=== PATIENT | female | born 1975 | race Two or more races ===

== ENCOUNTER → 2024-04-15 | Outpatient (CLI) | payer BC, SELFPAY ==
[2024-04-15 12:11] LABS: Basophils % (Auto) 1 % (0-2.5); Eosinophils # (Auto) 0.1 Thou/mm3 (0.0-0.5); Eosinophils % (Auto) 1 % (0-10); Hematocrit 40.8 % (36.0-46.0); Hemoglobin 13.6 g/dL (12.0-16.0); Immature Granulocytes % (Auto) 0 % (0-0); Immature Granulocytes Auto 0.02 Thou/mm3 (0.00-0.00); Lymphocytes # (Auto) 1.4 Thou/mm3 (1.0-4.8); Lymphocytes % (Auto) 27 % (10-50); Mean Corpuscular HGB Conc 33.3 g/dl (31.0-37.0); Mean Corpuscular Hemoglobin 29.7 pg (25.0-35.0); Mean Corpuscular Volume 89 fL (80-100); Monocytes # (Auto) 0.4 Thou/mm3 (0.0-0.8); Monocytes % (Auto) 7 % (0-12); Neutrophils # (Auto) 3.3 Thou/mm3 (1.8-7.7); Neutrophils % (Auto) 64 % (37-80); Nucleated Red Blood Cell % 0 /100 WBC (0); Platelet Count 260 Thou/mm3 (140-440); RDW Standard Deviation 39.7 fL (36.4-46.3); Red Blood Count 4.58 Miln/mm3 (4.00-5.20); White Blood Count 5.1 Thou/mm3 (3.6-11.0)
[2024-04-15 12:22] LABS: Alanine Aminotransferase 59 U/L (10-49); Albumin, Serum 4.5 gm/dL (3.5-5.0); Albumin/Globulin Ratio 1.5 (1.2-2.2); Alkaline Phosphatase 91 U/L (46-116); Anion Gap 7 (7-16); Aspartate Amino Transferase 18 U/L (0-34); BUN/Creatinine Ratio 17 Ratio (12-20); Bilirubin,Total 0.6 mg/dL (0.3-1.2); Blood Urea Nitrogen 15 mg/dL (9-23); Calcium 9.6 mg/dL (8.3-10.6); Calcium (Corrected) 9.6 mg/dL (8.5-10.1); Carbon Dioxide 27.3 mMol/L (20.0-31.0); Chloride 103 mMol/L (98-107); Creatinine (Component) 0.9 mg/dL (0.6-1.3); Glucose 91 mg/dL (74-106); Osmolality,Calculated 274 (275-295); Parathyroid Hormone Intact 63.7 pg/ml (18.5-88.0); Phosphorous 3.2 mg/dL (2.4-5.1); Potassium 4.2 mMol/L (3.4-5.1); Sodium 137 mMol/L (136-145); Total Protein 7.5 gm/dL (5.7-8.2); eGFR > 60 See Note
== END | disposition home or self-care (01) ==
LOC: COPL 11:10
PROVIDERS: PCP Registered Nurse; Referring Provider Internal Medicine Endocrinology, Diabetes & Metabolism; Visit Provider Internal Medicine Endocrinology, Diabetes & Metabolism
DX: E21.3 Hyperparathyroidism, unspecified (principal); E83.52 Hypercalcemia; E55.9 Vitamin D deficiency, unspecified
CPT/HCPCS: 36415; 80053; 82306; 83970; 84100; 85025

== ENCOUNTER → 2024-11-04 | Outpatient (CLI) | payer BC, SELFPAY ==
[2024-11-05 15:19] LABS: COVID-19 Confirmatory PCR Negative (Neg)
== END | disposition home or self-care (01) ==
LOC: COPL 16:02
PROVIDERS: PCP Registered Nurse; Referring Provider Student in an Organized Health Care Education/Training Program; Visit Provider Student in an Organized Health Care Education/Training Program
DX: U07.1 COVID-19 (principal)
CPT/HCPCS: 87635

== ENCOUNTER → 2025-03-04 | Outpatient (CLI) | payer BC, SELFPAY ==
--- NOTE | 2025-03-04 07:15 | XR_ITS ---
EXAMINATION: Abdomen sonogram complete TECHNIQUE: Grayscale sonographic images of abdomen Artery 15, 5, 0739 hours INDICATIONS: Abdominal pain this week. FINDINGS: Normal gallbladder. Normal common bile duct Pancreatic head 2.4 cm Aorta not enlarged. Liver 13.7 cm fatty infiltration no focal liver lesions Normal hepatopetal portal venous flow Patent IVC Right kidney 10.7 cm renal cortex 1.6 cm Left kidney 11.7 cm renal cortex 2.0 cm Mild renal scar formation Spleen 9.7 cm IMPRESSION: Normal gallbladder Fatty infiltration throughout the liver.
== END | disposition home or self-care (01) ==
PROVIDERS: PCP Registered Nurse; Referring Provider Registered Nurse; Visit Provider Registered Nurse
DX: K76.0 Fatty (change of) liver, not elsewhere classified (principal)
CPT/HCPCS: 76700

== ENCOUNTER 2025-03-13 18:22 | Emergency (ER) | payer BC, SELFPAY ==
[2025-03-13 18:24] VITALS: BMI 34.3
[2025-03-13 19:33] VITALS: BP 133/84; PULSE 77; RESP 17; TEMP 36.9; O2SAT 98
--- NOTE | 2025-03-13 19:48 | EDRME_ITS ---
Rapid Medical Screening Exam [facility] Arrival date/time: 03/13/25 18:22 49F with history of Sjogren's syndrome presents to ED with several days of L- sided RICHARD, as well as some L eye pain/redness. Patient denies discharge and vision changes. Chief Complaint: Eye Problems Vital signs: Vital Signs Temperature 98.4 F 03/13/25 19:33 Pulse Rate 77 03/13/25 19:33 Respiratory Rate 17 03/13/25 19:33 Blood Pressure 133/84 H 03/13/25 19:33 Pulse Oximetry (%) 98 03/13/25 19:33 Exam: L red eye. Normal pupil response and EOM (painless). No orbital tenderness. Speech normal. Clinical Impression: Conjunctivitis vs migraine vs temporal arteritis vs orbital cellulitis vs acute- angle glaucoma vs shingles
--- NOTE | 2025-03-13 20:10 | XR_ITS ---
Examination: CT brain head without contrast. 2-D sagittal coronal reconstructions Date and time of exam: March 13, 2025, 2024 hours INDICATION: Onset sharp pain behind the left eye beginning 1 week ago CTDI: vol (mGy): 48.5 DLP: (mGycm): 1044 Technique: Multiple CT axial sections of the brain have been obtained, 5 mm slice thickness. Contrast has not been administered. 2-D sagittal, coronal reconstructions have been obtained Low dose protocols were performed. One or more of the following dose reduction techniques were used; automated exposure control, adjustment of the mA and/or KV according to patient size, use of iterative reconstruction technique. Findings: No significant ventricular enlargement. Intra-axial or extra-axial hemorrhage density is not seen. No mass effect or midline shift Basal cisterns are not remarkable. Fourth ventricle is midline. Cranial vault intact. Impression: Negative for acute hemorrhage, mass effect or midline shift If symptoms persist, consider brain MRI follow-up pre and postcontrast
[2025-03-13 20:24] LABS: Basophils # (Auto) 0.0 Thou/mm3 (0.0-0.2); Basophils % (Auto) 1 % (0-2.5); Eosinophils # (Auto) 0.1 Thou/mm3 (0.0-0.5); Eosinophils % (Auto) 1 % (0-10); Hematocrit 40.0 % (36.0-46.0); Hemoglobin 13.0 g/dL (12.0-16.0); Immature Granulocytes Auto 0.01 Thou/mm3 (0.00-0.00); Lymphocytes # (Auto) 2.2 Thou/mm3 (1.0-4.8); Lymphocytes % (Auto) 34 % (10-50); Mean Corpuscular HGB Conc 32.5 g/dl (31.0-37.0); Mean Corpuscular Hemoglobin 28.0 pg (25.0-35.0); Mean Corpuscular Volume 86 fL (80-100); Monocytes # (Auto) 0.5 Thou/mm3 (0.0-0.8); Monocytes % (Auto) 7 % (0-12); Neutrophils # (Auto) 3.7 Thou/mm3 (1.8-7.7); Neutrophils % (Auto) 56 % (37-80); Nucleated Red Blood Cell # 0.00 Thou/mm3 (0.00-0.00); Nucleated Red Blood Cell % 0 /100 WBC (0); Platelet Count 247 Thou/mm3 (140-440); RDW Standard Deviation 40.2 fL (36.4-46.3); Red Blood Count 4.65 Miln/mm3 (4.00-5.20); White Blood Count 6.5 Thou/mm3 (3.6-11.0)
[2025-03-13 21:15] LABS: Sed Rate (ESR) 44 mm/hr (0-30)
[2025-03-13 21:33] LABS: Alanine Aminotransferase 60 U/L (10-49); Albumin, Serum 4.7 gm/dL (3.5-5.0); Albumin/Globulin Ratio 1.4 (1.2-2.2); Alkaline Phosphatase 84 U/L (46-116); Anion Gap 8 (7-16); Aspartate Amino Transferase 36 U/L (0-34); BUN/Creatinine Ratio 14 Ratio (12-20); Bilirubin,Total 0.5 mg/dL (0.3-1.2); Blood Urea Nitrogen 13 mg/dL (9-23); Calcium 9.6 mg/dL (8.3-10.6); Calcium (Corrected) 9.6 mg/dL (8.5-10.1); Carbon Dioxide 29.3 mMol/L (20.0-31.0); Chloride 103 mMol/L (98-107); Creatinine (Component) 0.9 mg/dL (0.6-1.3); Estimated Creatinine Clearance 81.6 mL/min (>60); Globulin 3.3 gm/dL (2.3-3.5); Glucose 84 mg/dL (74-106); Osmolality,Calculated 278 (275-295); Potassium 3.8 mMol/L (3.4-5.1); Sodium 140 mMol/L (136-145); Total Protein 8.0 gm/dL (5.7-8.2); eGFR > 60 See Note
[2025-03-13 21:44] LABS: C-Reactive Protein 0.8 mg/dL (0.0-0.9)
--- NOTE | 2025-03-14 00:19 | EDNOTE_ITS ---
ED Eye Problem RME/HPI General Chief complaint: Eye Problems Stated complaint: SENT BY PCP S/P HEADACHE THAT RADIATES TO L EYE Arrival date/time: 03/13/25 18:22 RME / HPI RME / HPI Narrative: 03/13/25 18:22 49F with history of Sjogren's syndrome presents to ED with several days of L- sided RICHARD, as well as some L eye pain/redness. Patient denies discharge and vision changes. DR. WHEAT MAIN ED EVALUATION: Patient with Hx of Sjogren's syndrome presenting with BL occular discomfort of progressive nature x 2 weeks with no visual disturbances. Reports stinging/burning sensation to both eyes. Reports mild left maxillary sinus pressure, but no fever, chills, vomiting, or disequilibrium. Patient has been taking OTC medication with no relief. PMH: Sjogren's Syndrome, Anemia PSH: x2 Allergies: None Social: Non-smoker, no illicit drug abuse Exam: L red eye. Normal pupil response and EOM (painless). No orbital tenderness. Speech normal. Impression: Conjunctivitis vs migraine vs temporal arteritis vs orbital cellulitis vs acute- angle glaucoma vs shingles Related Data Previous Rx's ?Medication ?Instructions ?Recorded naproxen 250 mg tablet 250 mg PO BID PRN pain #14 t abs 03/14/25 Allergies Allergy/AdvReac Type Severity Reaction Status Date / Time No Known Allergies Allergy Verified 03/13/25 18:28 Review of Systems Review of Systems Systems Reviewed: All systems reviewed, normal except as documented Past Medical History Past Medical History NEUROLOGIC: Positive Neurological Disorders (SJORGENS MILD) REPRODUCTIVE: Positive Previous Pregnancies ENDOCRINE: Positive Endocrine Disorders (SJORGENS MILD) HEMATOLOGIC: Positive Anemia OTHER HISTORY: Positive Chicken Pox Family History FAMILY HISTORY: Positive Family Cardiac Disorders (FATHER,MOTHER (HTN)), Family Surgery (MOTHER,FATHER) and Family Anesthesia Reaction (MOTHER ?) Surgical History SURGICAL: Positive Section (X2) ED Exam Narrative Physical exam: GEN. APPEARANCE: The patient is alert awake oriented X-3 in mild distress secondary to BL occular discomfort., lying down comfortably, does not look ill/toxic. Patient has good eye contact. Patient is cooperative. VITALS: All vitals were reviewed and the pulse ox is 98%, which is normal according to my interpretation HEENT: Normocephalic, atraumatic and nontender. Pupils are equal and reactive. BL 2+ conjunctival injection, no purulent discharge, anterior chamber is clear, and cobble-stoning of conjunctival bulbar surface. Oral mucosa is moist. NECK: Supple, nontender, no meningismus, no JVD. There is no thyromegaly and no lymphadenopathy. CHEST: Nontender on palpation no deformity and no crepitus. CARDIOVASCULAR: Heart regular rhythm, no murmur or gallop rub or extra beats. LUNGS: Clear to auscultation bilaterally with symmetrical chest rise. No laboring tachypnea or wheezing. No intercostal subcostal retraction. No rales and no rhonchi. ABDOMEN: Soft, flat, nontender to palpation, no guarding or rebound tenderness. There are no abnormal masses palpated. No pulsatile masses or bruits. Active and normal bowel sounds. EXTREMITIES:.Normal inspection and palpation. No edema. No cyanosis. Patient is able to move all 4 extremities well SKIN: Warm and dry, no rashes noted. MUSCULOSKELETAL: No lumbar or midline bony tenderness. There is no CVA tenderness. No paraspinal muscle spasm or tenderness. NEURO: Cranial nerves II through XII grossly intact. There are no focal neurologic deficits noted. GCS is 15 PSYCHIATRIC: Patient is in normal mood and affect, cooperative. LYMPHATICS: No major lymphadenopathy noted. Course Quality Measures none Orders Category Date Time Status CT head/brain wo con Stat Exams 03/13/25 20:10 Completed CBC Stat Lab 03/13/25 20:18 Completed CMP [Comprehensive Metabolic Panel] Stat Lab 03/13/25 20:18 Completed CRP [C-Reactive Protein] Stat Lab 03/13/25 20:18 Completed ESR [Sed Rate (ESR)] Stat Lab 03/13/25 20:18 Completed Fluorescein Sodium [Bio-Shena] Med 03/14/25 00:24 Discontinued 1 mg BOTH EYES X1 ONE HYDROcodone*/APAP 5/325 [[place] 5/325] Med 03/14/25 00:46 Discontinued 1 tab PO X1 ONE PHAN/POLY/DEX (Maxitrol) OP OIN [Maxitrol Op Oint] Med 03/14/25 00:45 Discontinued See Dose Instructions BOTH EYES X1 ONE TETRACAINE Op Stacey 0.5% [Pontocaine Op Stacey 0.5%] Med 03/14/25 00:24 Discontinued 2 drop BOTH EYES X1 ONE Tobramycin/Dexameth Op Oint [Tobradex Op Oint] Med 03/14/25 00:56 Discontinued See Dose Instructions BOTH EYES X1 ONE Vital Signs Vital signs: Vital Signs Temperature 98.4 F 03/13/25 19:33 Pulse Rate 77 03/13/25 19:33 Respiratory Rate 17 03/13/25 19:33 Blood Pressure 133/84 H 03/13/25 19:33 Pulse Oximetry (%) 98 03/13/25 19:33 PROCEDURES: Singh Lamp Exam Bilateral eyes: Flourescein uptake:: No Singh Lamp Findings: Normal Additional comments: 2 drops of Tetracaine added to both conjunctival sacs. Fluorescein stain added and underwent Singh Lamp exam demonstrating no corneal abrasion, FB evident, or corneal edema. dendritic bulbs/process. Eye MDM Narrative MDM Narrative:: Scribe Attestation: Rox Mueller, am scribing for and in the presence of Dr. Wheat. Provider Notation: Although this document has been carefully reviewed, there may still be some phonetic and other typographical errors. These errors are purely grammatical due to imperfections in the software program and should not be construed in any way to compromise the substance of the patient's medical care during this visit. Patient with Hx of Sjogren's syndrome presenting with BL occular discomfort of progressive nature x 2 weeks with no visual disturbances. Reports stinging/burning sensation to both eyes. Please see PE findings. Laboratory markers demonstrate mild elevation of inflammatory markers. CT Brain unremarkable. Patient underwent fluorescein staining which demonstrated mild edema without evidence of abrasion, ulceration, or FB. Will place on Maixtrol and prescribed Naprocin with close ophthalmological F/U recommended. Patient data External records reviewed:: [facility] previous records (No recent ED records available for review.) Clinical information provided by:: patient Social determinants that could affect healthcare access:: none Patient has the following chronic illnesses:: Sjogren's Syndrome, Anemia How is presenting disease/condition affected by chronic disease/condition?: exacerbated by Evaluation data The following diagnostics were reviewed and interpreted by me:: lab results and radiology exam(s) Lab and/or radiology exams considered but not ordered:: None Interpretation Summary: RADIOLOGY Head/Brain CT: Findings: No significant ventricular enlargement. Intra-axial or extra-axial hemorrhage density is not seen. No mass effect or midline shift Basal cisterns are not remarkable. Fourth ventricle is midline. Cranial vault intact. Impression: Negative for acute hemorrhage, mass effect or midline shift If symptoms persist, consider brain MRI follow-up pre and postcontrast Medications / Prescriptions Medications or Prescriptions considered but not ordered:: None Medication administrations:: Medication Administration History Discontinued Medications Hydrocodone Bitart/Acetaminophen (Hydrocodone/Apap 5/325 Tablet) 1 tab PO X1 ONE Stop: 03/14/25 00:47 Last Admin: 03/14/25 01:04 Dose: 1 tab Documented By: WILLY Fluorescein Sodium (Fluorescein Sod 1 Mg Strp) 1 mg BOTH EYES X1 ONE Stop: 03/14/25 00:25 Last Admin: 03/14/25 00:37 Dose: 1 mg Documented By: WILLY Neomycin/Polymyxin/Dexamethasone (Phan/Poly/Dex (Maxitrol) Op Oin 3.5 Gm Tube) 0 gm BOTH EYES X1 ONE Stop: 03/14/25 00:46 Tetracaine HCl (Tetracaine Pf Op Stacey 0.5% 4 Ml Drpette) 2 drop BOTH EYES X1 ONE Stop: 03/14/25 00:25 Last Admin: 03/14/25 00:36 Dose: 2 drop Documented By: WILLY Tobramycin/Dexamethasone (Tobramycin/Dexameth Op Oint 3.5 Gm Tube) 0 gm BOTH EYES X1 ONE Stop: 03/14/25 00:57 Last Admin: 03/14/25 01:04 Dose: 3.5 gm Documented By: WILLY See above if any Consultations Consultation(s) initiated? (list below): No Diagnosis Eye Problem Differential Diagnosis: corneal abrasion, conjunctivitis, acute iritis, periorbital cellulitis and corneal ulcer Most likely diagnosis given after review of the tests above:: Acute viral conjunctivitis of both eyes Admission Indicated Admission indicated?: not indicated Explain why admission is indicated or not indicated:: Patient does not meet admission criteria Admission Request Was there a request for admission?: No Disposition Plan Disposition Plan: Discharge Discharge Attestation Discharge Attestation: The patient and all family members were given an opportunity to ask questions and understood the discharge instructions. Discharge instructions specifically effects, indications for sooner follow up or return to the emergency department, and the expected course of current diagnosis. Patient condition: Stable Discharge Plan Plan Patient Disposition: HOME (Self Care) Discharge Disposition comment: stable Prescriptions/Referrals Prescriptions/Med Rec: New naproxen 250 mg tablet 250 mg PO BID PRN (Reason: pain) Qty: 14 0RF Rx Instructions: With food Referrals: Geovanna Amin MD [Primary Care Provider, Family Practice] - In 1 week Problem List Clinical Impression: Acute viral conjunctivitis of both eyes Patient/Caregiver Discharge Instructions Discharge Activity: activity as tolerated Other Activity Instructions:: Cool compresses to both eyes 2-3 times daily. Education Materials: ED Conjunctivitis, Viral Additional Instructions: Cool compresses, head of bed elevation, medication as directed. Follow-up with cylinder grinder within 3 to 5 days. Print Language: Danish Stand Alone Forms: [employer] Award Info., Work/School Release, Patient Portal Info Letter
[2025-03-14] MEDS: TETRACAINE PF OP SOL 0.5% 4 ML DRPETTE 2 DROP BOTH EYES (00:36)
[2025-03-14] MEDS: FLUORESCEIN SOD 1 MG STRP BOTH EYES (00:37)
[2025-03-14] MEDS: HYDROcodone/APAP 5/325 TABLET 1 TAB PO (01:04)
[2025-03-14] MEDS: TOBRAMYCIN/DEXAMETH OP OINT 3.5 GM TUBE BOTH EYES (01:04)
== END 2025-03-14 01:11 | disposition home or self-care (01) ==
PROVIDERS: Physician Assistant; Emergency Provider Emergency Medicine; PCP Family Medicine
DX: B30.9 Viral conjunctivitis, unspecified (principal)
CPT/HCPCS: 36415; 70450; 80053; 85025; 85652; 86140; 99282; A9270